=== PATIENT | female | born 1945 | race Caucasian/White ===

== ENCOUNTER → 2018-01-09 | Outpatient (CLI) | payer MEDICARE ==
--- NOTE | 2018-01-12 16:32 | Diagnostic Imaging Report ---
#[id number] - MGSCRBIL #BILATERAL DIGITAL SCREENING MAMMOGRAM WITH CAD: 01/09/2018 CLINICAL: Routine screening. Comparison is made to exams dated: 01/09/2017 mammogram, 12/31/2015 mammogram and 01/08/2015 mammogram - [facility]. Current study contains 5 films. There are scattered fibroglandular elements in both breasts. Current study was also evaluated with a Computer Aided Detection (CAD) system. There are benign calcifications in both breasts. There also are post operative findings in the left breast with scarring, retraction, calcifications and multiple surgical clips. These findings are stable. There is vascular calcification on the right side. No significant masses, calcifications, or other findings are seen in either breast. There has been no significant interval change. IMPRESSION: BENIGN There is no mammographic evidence of malignancy. A 1 year screening mammogram is recommended. The patient will be notified by letter of the results. Lauri Ngo Jr., D.O. cw/:01/12/2018 12:56:48 Dish Stacker: Jacqui DRAPER(R)(M), [facility] letter sent: Compared to Prior B9 Mammogram BI-RADS: 2 Benign
== END | disposition home or self-care (01) ==
LOC: MAMMO 08:08
PROVIDERS: ATTEND Family Medicine
DX: Z12.31 Encounter for screening mammogram for malignant neoplasm of breast (principal)
CPT/HCPCS: 77067

== ENCOUNTER 2019-03-12 09:23 | Inpatient (IN) | payer MEDICARE ==
[2019-03-11 10:05] LABS: BASOPHILS % 0.3 % (0.0-1.0); EOSINOPHILS # (AUTO) 0.1 (0.0-0.4); EOSINOPHILS % 0.9 % (0.0-6.0); HEMATOCRIT 40.3 % (34.2-44.1); HEMOGLOBIN 14.2 g/dL (12.0-16.0); LYMPHOCYTES # (AUTO) 1.6 (1.0-3.2); LYMPHOCYTES % 16.5 % (18.0-39.1); MEAN CORPUSCULAR HEMOGLOBIN 33.1 pg (28-32); MEAN CORPUSCULAR HGB CONC 35.2 g/dL (31-35); MEAN CORPUSCULAR VOLUME 93.9 fL (81-99); MONOCYTES % 10.5 % (4.4-11.3); NEUTROPHILS # (AUTO) 6.8 (2.1-6.9); NEUTROPHILS % 71.1 % (38.7-80.0); PLATELET COUNT 285 x10e3/uL (140-360); RED BLOOD COUNT 4.29 x10e6/uL (3.6-5.1)
--- NOTE | 2019-03-11 10:11 | Diagnostic Imaging Report ---
EXAMINATION: CHEST 2 VIEWS INDICATION: Pre-operative. COMPARISON: Chest radiograph 04/11/2007. FINDINGS: TUBES and LINES: None. LUNGS: Lungs are well inflated. There is no evidence of pneumonia or pulmonary edema. Mild patchy left basilar opacity, likely atelectasis. PLEURA: No pleural effusion or pneumothorax. HEART AND MEDIASTINUM: The cardiomediastinal silhouette is unremarkable. There are atherosclerotic calcifications within the aorta. There is eventration of the right hemidiaphragm. BONES AND SOFT TISSUES: No acute osseous abnormality. Surgical clips project over the left lower hemithorax. UPPER ABDOMEN: No free air under the diaphragm. IMPRESSION: No acute radiographic abnormality. Signed by: Dr. Mirian Davis MD on 03/11/2019 10:08 AM
[~2019-03-12] VITALS: Ht 157.5 cm; Wt 79.4 kg
[~2019-03-12 09:23] MED LIST: ATORVASTATIN CA20 MG PO; CALCIUM PO; CLONAZEPAM0.5 MG PO; LEVOTHYROXINE100 MC1 IV; LEVOTHYROXINE50 MCG PO; MULTIVITAMINS1 EAC7 PO; ROPIVACAINE 246.25 MG, EPINEPHRINE HCL 1:1000 1ML 0.5 MG, CLONIDINE HCL 0.08 MG, KETORO... INJ ONE; [UNRECOGNIZED DRUG - OTHER] PO
--- OUTSIDE RECORDS SUMMARY | 2019-03-12 09:25 | XMS REPORT ---
Author Author [facility] Address Unknown Phone Unavailable Care Team Providers Care Animal Shelter Worker Name Role Phone ELIDIA MCCANN Unavailable Unavailable Slick BHARDWAJ Unavailable Unavailable Jerrell LINCOLN Unavailable Unavailable Problems This patient has no known problems. Allergies, Adverse Reactions, Alerts This patient has no known allergies or adverse reactions. Medications This patient has no known medications. Results Test Description Test Time Test Comments Text Results Atomic Results Result Comments CHEST 2 VIEWS 2019-03-11 10:05:00 [place] [address] Patient Name: YOBANY MORATAYA MR #: [id number] : 1945 Age/Sex: 73/F Req #: [id number] Adm Physician: Ordered by: ELIDIA MCCANN MD Report #: [id number] Location: OR Room/Bed: Procedure: [id number] DX/CHEST 2 VIEWS Exam Date: 03/11/19 Exam Time: 0945 REPORT STATUS: Signed EXAMINATION: CHEST 2 VIEWS INDICATION: Pre-operativ e. COMPARISON: Chest radiograph 04/11/2007. FINDINGS: TUBES and LINES: None. LUNGS: Lungs are well inflated. There is no evidence of pneumonia or pulmonary edema. Mild patchy left basilar opacity, likely atelectasis. PLEURA: No pleural effusion or pneumothorax. HEART AND MEDIASTINUM: The cardiomediastinal silhouette is unremarkable. There are atherosclerotic calcifications within the aorta. There is eventration of the right hemidiaphragm. BONES AND SOFT TISSUES: No acute osseous abnormality. Surgical clips project over the left lower hemithorax. UPPER ABDOMEN: No free air under the diaphragm. IMPRESSION: No acute radiographic abnormality. Signed by: Dr. Kimberly Mason MD on 03/11/2019 10:08 AM Dictated By: KIMBERLY MASON MD 1008 Transcribed By: ELLA on 03/11/19 1008 COPY TO: ELIDIA MCCANN MD MAMMOGRAPHY DIGITAL SCR BILAT 2019-01-09 10:55:00 [place] [address] Patient Name: YOBANY MORATAYA MR #: [id number] : 1945 Age/Sex: 73/F Req #: [id number] Adm Physician: Ordered by: JOHN BHARDWAJ MD Report #: [id number] Location: MAMMO Room/Bed: Procedure: [id number] MG/MAMMOGRAPHY DIGITAL SCR BILAT Exam Date: 01/09/19 Exam Time: 932 REPORT STATUS: Signed #[id number] - MGSCRBIL #BILATERAL DIGITAL SCREENING MAMMOGRAM WITH CAD: 01/09/2019 CLINICAL: Routine screening. Comparison is made to exams dated: 01/09/2018 mammogram and 01/09/2017 mammogram - [facility]. Current study contains 5 films. There are scattered fibroglandular elements in both breasts. Current study was also evaluated with a Computer Aided Detection (CAD) system. There are benign calcifications in both breasts. There also are post operative findings in the left breast. No significant masses, calcifications, or other findings are seen in either breast. There has been no significant interval change. IMPRESSION: BENIGN There is no mammographic evidence of malignancy. A 1 year screening mammogram is recommended. The patient will be notified by letter of the results. Tano nolan/jasmine:01/25/2019 08:13:13 Chief Procurement Officer: Jacqui BOYD)(Kaylee), [facility] letter sent: Compared to Prior B9 Mammogram BI-RADS: 2 Benign Dictated By: TANO NGO DO 2 Transcribed By: JASMINE on 01/25/19812 COPY TO: JOHN BHARDWAJ MD MAMMOGRAPHY DIGITAL SCR BILAT [place] [address] Patient Name: YOBANY MORATAYA MR #: [id number] : 1945 Age/Sex: 72/F Req #: [id number] Adm Physician: Ordered by: OCTAVIA LINCOLN MD Report #: [id number] Location: MAMMO Room/Bed: Procedure: [id number] MG/MAMMOGRAPHY DIGITAL SCR BILAT Exam Date: 01/09/18 Exam Time: 0825 REPORT STATUS: Signed #[id number] - MGSCRBIL #BILATERAL DIGITAL SCREENING MAMMOGRAM WITH CAD: 01/09/2018 CLINICAL: Routine screening. Comparison is made to exams dated: 01/09/2017 mammogram, 12/31/2015 mammogram and 01/08/2015 mammogram - [facility]. Current study contains 5 films. There are scattered fibroglandular elements in both breasts. Current study was also evaluated with a Computer Aided Detection (CAD) system. There are benign calcifications in both breasts. There also are post operative findings in the left breast with scarring, retraction, calcifications and multiple surgical clips. These findings are stable. There is vascular calcification on the right side. No significant masses, calcifications, or other findings are seen in either breast. There has been no significant interval change. IMPRESSION: BENIGN There is no mammographic evidence of malignancy. A 1 year screening mammogram is recommended. The patient will be notified by letter of the results. Tano Ngo Jr., D.O. cw/:01/12/2018 12:56:48 Chief Procurement Officer: Jacqui BOYD)(Kaylee), [facility] letter sent: Compared to Prior B9 Mammogram BI-RADS: 2 Benign Dictated By: TANO NGO DO 1256 Transcribed By: JASMINE on 01/12/18 1256 COPY TO: OCTAVIA LINCOLN MD FOOT LEFT COMPLETE [place] [address] Patient Name: YOBANY MORATAYA MR #: [id number] : 1945 Age/Sex: 72/F Req #: [id number] [facility] Physician: Ordered by: OCTAVIA LINCOLN MD Report #: [id number] Location: [facility] Room/Bed: Procedure: [id number] DX/FOOT LEFT COMPLETE Exam Date: Exam Time: REPORT STATUS: Signed PROCEDURE: X-RAY LEFT FOOT, COMPLETE COMPARISON: None. INDICATIONS: Left heel/foot pain FINDINGS: No acute, displaced fracture or dislocation. Appropriate alignment between the medial cuneiform and second metatarsal base in keeping with an intact Lisfranc ligament. Scattered foci of joint space narrowing and subchondral sclerosis throughout the midfoot. Remaining joint spaces are relatively well-maintained. Degenerative plantar and posterior calcaneal spur. Soft tissues are unremarkable. CONCLUSION: No acute osseous abnormality. Minimal degenerative calcaneal spur and scattered mild degenerative changes throughout the midfoot. Dictated by: Elidia Tovar M.D. on 09/14/2017 at 9:16 Electronically approved by: Elidia Tovar M.D. on 09/14/2017 at 9:16 Dictated By: ELIDIA TOVAR MD 0916 Transcribed By: LUL on 09/14/17915 COPY TO: OCTAVIA LINCOLN MD
[2019-03-12] MEDS ORDERED: CELECOXIB 200 MG CAP ONE (09:34)
[2019-03-12] MEDS ORDERED: DEXAMETHASONE SOD PHOS 10 MG/1 ML VIAL ONE (09:35)
[2019-03-12] MEDS ORDERED: VANCOMYCIN 1GM/NS 250 ML 250 ML ONE (09:35)
[2019-03-12] MEDS ORDERED: GABAPENTIN 300 MG CAP ONE (09:35)
[2019-03-12] MEDS ORDERED: SODIUM CHLORIDE 0.9% 500ML 500 ML ONE (10:12)
[2019-03-12] MEDS ORDERED: VANCOMYCIN HCL ONE (10:12)
[2019-03-12] MEDS ORDERED: MUPIROCIN 2% OINT 22 GM TUBE ONE (10:12)
[2019-03-12] MEDS ORDERED: BACITRACIN 50,000 UNIT VIAL ONE (10:13)
[2019-03-12] MEDS ORDERED: TRANEXAMIC ACID 1,000 MG/10 ML ML ONE (10:13)
[2019-03-12] MEDS ORDERED: ROPIVACAINE 0.5% 5 MG/ML 30 ML SDV ONE (12:31)
[2019-03-12] MEDS ORDERED: LIDOCAINE 2% /EPINEPHRINE 20 ML SDV INJ ONE (12:31)
[2019-03-12] MEDS ORDERED: FENTANYL CITRATE/PF 100MCG/2 ML INJ ONE ×2 (13:07→13:39)
[2019-03-12] MEDS ORDERED: MIDAZOLAM HCL 2 MG/2 ML VIAL ONE (13:07)
[2019-03-12] MEDS: SODIUM CHLORIDE 0.9% 1000ML 1,000 ML IV SCH ×2 (13:11→23:11)
[2019-03-12] MEDS ORDERED: ACETAMINOPHEN 650 MG SUPP PR PRN (13:15)
[2019-03-12] MEDS ORDERED: DOCUSATE SODIUM 100 MG CAP PO PRN (13:15)
[2019-03-12] MEDS ORDERED: PROMETHAZINE HCL (IM) 25 MG/ML VIAL INJ PRN (13:15)
[2019-03-12] MEDS ORDERED: HYDROCODONE/APAP 5MG-325MG TAB PO PRN (13:15)
[2019-03-12] MEDS ORDERED: DIPHENHYDRAMINE HCL INJ 50 MG/ML VIAL IM/IV PRN (13:15)
[2019-03-12] MEDS ORDERED: ONDANSETRON HCL INJ 2MG/ML 2ML 2 MG/ML VIAL IV PRN (13:15)
[2019-03-12] MEDS ORDERED: KETOROLAC TROMETHAMINE 30 MG/ML VIAL IV PRN (13:15)
--- NOTE | 2019-03-12 14:03 | Diagnostic Imaging Report ---
Left knee radiographs-2 views History: Postoperative. Findings: Status post left total total knee arthroplasty and patellar resurfacing with long stem prosthetic components in anatomic alignment. Overlying subcutaneous emphysema and surgical skin cinthya are present. No evidence of acute fracture. IMPRESSION: Status post left total knee arthroplasty in anatomic position. Signed by: Dr. Mirian Davis MD on 03/12/2019 1:59 PM
--- NOTE | 2019-03-12 15:00 | NUR ---
RECEIVED PATIENT FROM RECOVERY. PATIENT A/O X3 EVEN RESPIRATIONS ON 2LNC. LUNG SOUNDS CLEAR TO AUSCULTATION. BOWEL SOUNDS ACTIVE. NO EDEMA. LEFT KNEE DRESSING IN PLACE. WONG DRAINING CLEAR YELLOW URINE. HEVER HOSE ON RIGHT LEG. FOOT PUMPS BILATERALLY. AT BEDSIDE. VITAL SIGNS STABLE. CALL LIGHT IN REACH. WILL CONTINUE TO MONITOR PATIENT.
[2019-03-12 15:36] VITALS: BP 131/62
[2019-03-12 15:40] VITALS: BP 131/62
[2019-03-12 15:48] VITALS: BP 131/62
[2019-03-12] MEDS: CELECOXIB 100 MG CAP PO SCH (17:47)
[2019-03-12] MEDS: ACETAMINOPHEN 1000 MG/100 ML IV SCH ×2 (17:53→23:42)
[2019-03-12] MEDS ORDERED: ENOXAPARIN SOD INJ 40 MG/0.4 ML SYR SC SCH (18:15)
--- NOTE | 2019-03-12 18:30 | NUR ---
PATIENT ON CPM AT THIS TIME AT 50. TOLERATING WELL. CALL LIGHT IN REACH WILL CONTINUE TO MONITOR PATIENT.
[2019-03-12] MEDS ORDERED: PROPOFOL IV EMULSION 10 MG/ML 20 ML VIAL ONE (18:44)
[2019-03-12] MEDS ORDERED: LIDOCAINE HCL 2% LOCAL INJ 5 ML SDV VIAL INJ ONE (18:44)
[2019-03-12] MEDS ORDERED: ACETAMINOPHEN 1000 MG/100 ML IV ONE (18:44)
[2019-03-12] MEDS ORDERED: SEVOFLURANE INHAL SOLN 250 ML PEN BTL ONE (18:44)
[2019-03-12] MEDS ORDERED: KETOROLAC TROMETHAMINE 30 MG/ML VIAL ONE (18:44)
[2019-03-12] MEDS ORDERED: ONDANSETRON HCL INJ 2MG/ML 2ML 2 MG/ML VIAL ONE (18:44)
[2019-03-12 20:00] VITALS: BP 122/58
--- NOTE | 2019-03-12 20:30 | NUR ---
OFF CPM.TOLERATED WELL.MEDICATED WITH NORCO7.5 MG PO.
[2019-03-12] MEDS: HYDROCODONE/APAP 7.5MG-325MG 1 EA TAB PO PRN (20:42)
[2019-03-12] MEDS: VANCOMYCIN 1GM/NS 250 ML 250 ML IV SCH (20:42)
[2019-03-12] MEDS ORDERED: ZOLPIDEM TARTRATE 5 MG TAB PO PRN (21:00)
[2019-03-12 21:20] VITALS: BP 122/58
--- NOTE | 2019-03-12 21:30 | NUR ---
Assessment done.no nausea.pericare given.dressing is dry .bed locked and in lowest position.phone and call light within reach.informed to call for assistance as needed.
[2019-03-13] VITALS: BP 130/61
[2019-03-13 04:17] VITALS: BP 128/62
[2019-03-13] MEDS: ACETAMINOPHEN 1000 MG/100 ML IV SCH ×2 (05:15→12:00)
[2019-03-13 05:30] LABS: HEMATOCRIT 31.7 % (34.2-44.1)
--- NOTE | 2019-03-13 06:00 | NUR ---
D/cFoley .due to void.cpm applied.
--- NOTE | 2019-03-13 06:50 | NUR ---
Report taken to the oncoming rn.walking rounds done.stable condition.
--- NOTE | 2019-03-13 07:00 | NUR ---
Rcvd patient in report this am. Patient is asleep in bed at this time. No s/s of distress noted. Patient in CPM at this time and no c/o pain at this time.
--- NOTE | 2019-03-13 07:04 | Consultation ---
DATE OF CONSULTATION: HISTORY OF PRESENT ILLNESS: The patient is a 73-year-old female who came status post left total re-arthroplasty. The patient is currently status post left knee arthroplasty revision, is in good pain control. The patient has no complaints, is very happy with surgery. PAST MEDICAL HISTORY: Includes history of arthritis, history of hypothyroidism, history of hyperlipidemia, history breast cancer. PAST SURGICAL HISTORY: History of hysterectomy, history of bilateral knee replacement in the past, history of lumpectomy of the breast, and history of thyroid surgery too. SOCIAL HISTORY: No EtOH. No IV drug abuse. Lives with her . She is a housewife. Mental status normal. FAMILY HISTORY: Positive for diabetes. CURRENT MEDICATIONS: Include atorvastatin, clonazepam 0.5 mg as needed only for surgical reason, levothyroxine 50 mg daily, and multivitamin with calcium and vitamin D3. ALLERGIES: ALLERGIC TO ASPIRIN. REVIEW OF SYSTEMS: Negative for chest pain. No shortness of breath. No nausea, vomiting, or diarrhea. No constipation. No rectal bleeding. No hematochezia. No hematemesis. Positive for pain in the left knee. The patient also has no diplopia. No headaches. PHYSICAL EXAMINATION: VITAL SIGNS: Current vital signs include temperature of 98.1, pulse of 89, respirations of 18, blood pressure is 128/62, and pulse oximetry of 98%. HEENT: Normocephalic, atraumatic. Pupils are reactive to light and accommodation. CVS: S1, S2 normal. Regular rate and rhythm. ABDOMEN: Nontender, nondistended. EXTREMITIES: Left lower extremity in a CPM. Wound is clean. A few amount of trace blood seen, otherwise normal. The patient's pain control was well. LABORATORY VALUES: Hemoglobin is 11, hematocrit 31.7. Gram stain from the wound is pending. The patient is currently on acetaminophen for pain control, hydrocodone for pain control, vancomycin was given q.12 hours in lieu of her redo. She is on enoxaparin 40 mg, Celebrex 200 mg. The patient is also on docusate for constipation and needed. ASSESSMENT: 1. Left knee redo revision arthroplasty. 2. Hypothyroidism. 3. Hyperlipidemia. PLAN: Continue with home medication, extended postoperative care, DVT prophylaxis, and also early mobilization and possible discharge today. Further recommendation per clinical course. We will see the patient as an outpatient in the clinic. MD MARCELLO Cadet/LITA /[id number]
[2019-03-13] MEDS ORDERED: LEVOTHYROXINE SODIUM 100 MCG TAB PO SCH (07:30)
[2019-03-13] MEDS: CELECOXIB 100 MG CAP PO SCH (08:00)
[2019-03-13 08:41] VITALS: BP 148/67
[2019-03-13] MEDS: VANCOMYCIN 1GM/NS 250 ML 250 ML IV SCH (08:52)
[2019-03-13] MEDS: SODIUM CHLORIDE 0.9% 1000ML 1,000 ML IV SCH (08:53)
[2019-03-13] MEDS ORDERED: CLONAZEPAM 0.5 MG TAB PO SCH (09:00)
[2019-03-13] MEDS ORDERED: ATORVASTATIN 20 MG TAB PO SCH (09:00)
[2019-03-13] MEDS ORDERED: LEVOTHYROXINE SODIUM 50 MCG TAB PO SCH (09:00)
[2019-03-13] MEDS: HYDROCODONE/APAP 7.5MG-325MG 1 EA TAB PO PRN (10:55)
--- NOTE | 2019-03-13 11:00 | NUR ---
Patient is AAOx3. Patient is post op left knee replacement. Dressing clean and dry. Lung montero clear to auscultation. Bowel sounds present x4 and hypoactive. No edema noted. Patient ambulates with assist. PRN pain meds given.
[2019-03-13 11:06] VITALS: BP 148/67
[2019-03-13] MEDS ORDERED: NORCO 7.5-3251 EACH PO (11:37)
[2019-03-13] MEDS ORDERED: LOVENOX60 MG/0.6 SC (11:37)
[2019-03-13] MEDS ORDERED: TYLENOL WITH C1 EACH PO (11:38)
--- NOTE | 2019-03-13 12:22 | NUR ---
Per Xiomara with [facility], they will be able to see pt tomorrow. Addendum: 03/13/19 at 1239 by Kristi Gallo CM Clinicals faxed to [phone]
[2019-03-13 12:52] VITALS: BP 134/56
[2019-03-13] MEDS ORDERED: ACETAMINOPHEN 1000 MG/100 ML IV PRN (13:15)
--- NOTE | 2019-03-13 14:20 | NUR ---
PATIENT DISCHARGED HOME WITH WRITTEN INSTRUCTIONS, EQUIPMENT AND PRESCRIPTIONS (SPOUSE ALREADY FILLED) . PATIENT WAS ABLE TO GIVE SELF LOVENOX AND VERBALIZED UNDERSTANDING. TOOK PATIENT HOME.
[2019-03-13] MEDS ORDERED: ENOXAPARIN SOD INJ 40 MG/0.4 ML SYR SC SCH (17:00)
[2019-03-13] MEDS ORDERED: ATORVASTATIN 40 MG TAB PO SCH (21:00)
--- NOTE | 2019-03-14 08:05 | Operative Report ---
DATE OF PROCEDURE: 03/12/2019 SURGEON: James Hauser MD COMMERCIAL ELECTRICIAN: Madhu Dixon PA-C. PREOPERATIVE DIAGNOSIS: Mechanical complication pertaining to left knee prosthesis. POSTOPERATIVE DIAGNOSIS: Mechanical complication pertaining to left knee prosthesis. PROCEDURE: Revision left total knee arthroplasty with total synovectomy. INDICATION: The patient is a 73-year-old lady, who had a knee placed by an outside surgeon some years ago. This was a kinematic design and the knee was placed in pronounced varus. She has never been happy with the knee. More recently, the knee has become severely painful. The options were discussed in the office. She stated she would like to have this revised. The risks and benefits were explained. She stated she understood and wished to proceed. Realistic expectations were stressed. PROCEDURE IN DETAIL: The patient was brought to the operating room and placed under general anesthetic. She received prophylactic vancomycin, tranexamic acid, and a regional block in the holding area. Her left lower extremity was prepped and draped in a sterile manner. A preoperative time-out was performed. The extremity was exsanguinated and a proximal tourniquet was inflated to 300 mmHg. The previous incision was utilized. Medial parapatellar arthrotomy was performed. A blood-tinged synovial fluid was evacuated from the knee. Cultures were taken. A total synovectomy was performed. This allowed easier mobilization of the tissue. Fibrous overgrowth of the patella was excised. Soft tissue releases were performed to bring the knee up into flexion with the patella everted. There was catastrophic fracturing and failure of the tibial polyethylene insert. Synovectomy of the posterior joint was further performed. Retractors were placed for adequate visualization of the proximal tibia. Thin osteotomes were used to dislodge the tibial baseplate from the cement mantle. The entire cement mantle remained intact on the proximal tibia. This was further fractured with osteotomes and carefully removed. Attention was then directed towards the distal femur. The femoral component was also carefully removed with thin osteotomes and a punch. Minimal bone loss was encountered. We then proceeded to revise the knee. The knee was thoroughly irrigated with a shower tip pulsatile lavage and a spray mixtures of polymyxin and vancomycin throughout the case. A Locke and NephMoz revision system was used. Intramedullary reamers were placed down the tibial shaft. A new tibial bone cut was made. A 160 mm x 11 mm tibial stem was applied to a size #4 tibial baseplate. No offset was necessary. The central fin punch was impacted. Attention was then directed towards the distal femur. A 13 mm x 160 mm stem was used on the femoral component. A size #5 posterior stabilized revision stem was used. A 5 mm augments were used at the distal aspect of the femur to restore the joint line. A 4 mm posterior offset was necessary to accommodate the anatomy in relation to the axis of the canal. Trial reductions were performed. A 13 mm posterior stabilized tibial insert provided appropriate soft tissue balancing. Patellar tracking was felt to be adequate. The trial implants were then all removed. A 100 mL premixed pericapsular PETR injection was placed around the surrounding soft tissue. The knee was thoroughly irrigated with a shower tip pulsatile lavage. The components were assembled on the back table. A single mix of Palacos cement with antibiotics and augmented with a gram of vancomycin which was used to cement the components into place. The stems were left to be press-fit. All extravasated cement was removed. The wound was further irrigated while the cement cured. The arthrotomy was then closed with interrupted #1 Ethibond. The knee was put through flexion and extension to ensure a secure closure. The skin was closed with subcuticular Vicryl and cinthya. A sterile Aquacel bandage was applied. She was extubated and transported to the recovery room in stable condition. James Hauser MD DR/LITA /[id number] JESSICA
== END 2019-03-13 14:11 | disposition home health service (06) | DRG 468 ==
LOC: OR 09:23 → PACU V 13:13 → MED/SURG 14:37
PROVIDERS: ADMIT Specialist; ATTEND Specialist
PROC: 0SPU0JZ Removal of Synthetic Substitute from Left Knee Joint, Femoral Surface, Open Approach (ICD-10-PCS; principal; 2019-03-13)
PROC: 0SPW0JZ Removal of Synthetic Substitute from Left Knee Joint, Tibial Surface, Open Approach (ICD-10-PCS; 2019-03-13)
PROC: 0SRW0J9 Replacement of Left Knee Joint, Tibial Surface with Synthetic Substitute, Cemented, Open Approach (ICD-10-PCS; 2019-03-13)
PROC: 0SRU0J9 Replacement of Left Knee Joint, Femoral Surface with Synthetic Substitute, Cemented, Open Approach (ICD-10-PCS; 2019-03-13)
DX: T84.093A Other mechanical complication of internal left knee prosthesis, initial encounter (principal); M17.0 Bilateral primary osteoarthritis of knee; E03.9 Hypothyroidism, unspecified; E78.5 Hyperlipidemia, unspecified; Z96.653 Presence of artificial knee joint, bilateral; Z90.710 Acquired absence of both cervix and uterus
CPT/HCPCS: 36415; 71046; 85014; 85018; 85025; 86850; 86900; 86920; 87071; 87075; 87205; 93005; 97139; C1713; J0171; J1100; J1650; J1885; J2001; J2250; J2405; J2795; J3370; J7030; J7040

== ENCOUNTER → 2020-01-16 | Outpatient (CLI) | payer MEDICARE ==
[~2020-01-16] MED LIST changes: +LOVENOX60 MG/0.6 SC; +NORCO 7.5-3251 EACH PO; -ROPIVACAINE 246.25 MG, EPINEPHRINE HCL 1:1000 1ML 0.5 MG, CLONIDINE HCL 0.08 MG, KETORO... INJ ONE; +TYLENOL WITH C1 EACH PO
--- NOTE | 2020-01-17 18:12 | Diagnostic Imaging Report ---
#[id number] - MGSCRBIL #BILATERAL DIGITAL SCREENING MAMMOGRAM WITH CAD: 01/16/2020 CLINICAL: Routine screening. Comparison is made to exams dated: 01/09/2019 mammogram and 01/09/2017 mammogram - [facility]. There are scattered fibroglandular elements in both breasts. Current study was also evaluated with a Computer Aided Detection (CAD) system. There are benign calcifications in both breasts. There also are post operative findings in the left breast. No significant masses, calcifications, or other findings are seen in either breast. There has been no significant interval change. IMPRESSION: BENIGN There is no mammographic evidence of malignancy. A 1 year screening mammogram is recommended. The patient will be notified by letter of the results. DELIA mariano/marietta:01/17/2020 12:17:48 Membership Secretary: Jacqui DRAPER(R)(M), [facility] letter sent: Compared to Prior B9 Mammogram BI-RADS: 2 Benign
== END ==
LOC: MAMMO 08:04
PROVIDERS: ATTEND Radiology Radiation Oncology
DX: Z12.31 Encounter for screening mammogram for malignant neoplasm of breast (principal)
CPT/HCPCS: 77067

== ENCOUNTER → 2021-01-14 | Outpatient (CLI) | payer MEDICARE | LOC: MAMMO 09:26 | PROVIDERS: ATTEND Family Medicine | DX: Z12.31 Encounter for screening mammogram for malignant neoplasm of breast (principal) | CPT/HCPCS: 77067 ==

== ENCOUNTER → 2022-01-17 | Outpatient (CLI) | payer MEDICARE | LOC: MAMMO 10:00 | PROVIDERS: ATTEND Family Medicine | DX: Z12.31 Encounter for screening mammogram for malignant neoplasm of breast (principal) | CPT/HCPCS: 77067 ==

== ENCOUNTER → 2023-01-17 | Outpatient (CLI) | payer MEDICARE | LOC: MAMMO 08:13 | PROVIDERS: ATTEND Family Medicine | DX: Z12.31 Encounter for screening mammogram for malignant neoplasm of breast (principal) | CPT/HCPCS: 77067 ==

== ENCOUNTER → 2025-01-20 | Outpatient (REF) | payer MEDICARE | LOC: MAMMO 10:58 | PROVIDERS: ATTEND Family Medicine | DX: Z12.31 Encounter for screening mammogram for malignant neoplasm of breast (principal) | CPT/HCPCS: 77067 ==